=== PATIENT | female | born 1985 | race Asian ===

== ENCOUNTER → 2022-12-01 16:20 | Outpatient (CLI) | payer OTHER, SELFPAY | PROVIDERS: Referring Provider Family Medicine; Visit Provider Family Medicine | DX: Z23 Encounter for immunization (principal) | CPT/HCPCS: 90471; 90686 ==

== ENCOUNTER → 2023-12-07 14:18 | Outpatient (CLI) | payer OTHER, SELFPAY | PROVIDERS: PCP Family Medicine; Referring Provider Internal Medicine; Visit Provider Internal Medicine | DX: Z23 Encounter for immunization (principal) | CPT/HCPCS: 90471; 90656 ==

== ENCOUNTER → 2024-03-22 07:50 | Outpatient (CLI) | payer OTHER, SELFPAY ==
[2024-03-22 08:28] LABS: Add Manual Diff / Slide Review NO; Basophils Absolute Auto 100 /uL (0-100); Basophils Percent Auto 0.9 % (0-2); Eosinophils Absolute Auto 400 /uL (0-450); Eosinophils Percent Auto 6.7 % (2-4); Hematocrit 38.1 % (36-46); Hemoglobin 12.2 g/dL (12.0-16.0); Lymphocytes Absolute Auto 1800 /uL (1100-4500); Lymphocytes Percent Auto 27.3 % (25-40); Mean Corpuscular Hemoglobin 25.1 PG (26-34); Mean Corpuscular Volume 78.4 fL (80-100); Monocytes Absolute Auto 300 /uL (0-900); Monocytes Percent Auto 5.1 % (3-14); Neutrophils Absolute Auto 3900 /uL (1500-7000); Platelet Count 209 X10^3/uL (150-400); Red Blood Cell Count 4.85 X10^6/uL (4.0-5.2); Red Cell Distribution Width 14.3 % (11.6-14.8); White Blood Cell Count 6.5 X10^3/uL (4.5-11.0)
[2024-03-22 08:36] LABS: Hemoglobin A1C% w Est Avg Glu 4.9 % (4.0-6.0)
[2024-03-22 08:49] LABS: HEMOLYSIS < 15 (0-50); Iron 74 ug/dL (37-170)
[2024-03-22 08:54] LABS: Alanine Aminotransferase 20 IU/L (<35); Albumin 4.4 g/dL (3.5-5.0); Albumin Globulin Ratio 1.6 (1.0-2.8); Alkaline Phosphatase 56 U/L (38-126); Aspartate Aminotransferase 26 IU/L (14-36); BUN Creatinine Ratio 16.7 (6-22); Bilirubin Total 0.6 mg/dL (0.2-1.3); Blood Urea Nitrogen 13 mg/dL (7-17); Calcium 9.4 mg/dL (8.4-10.2); Carbon Dioxide 21 mmol/L (22-32); Chloride 107 mmol/L (98-107); Cholesterol 185 mg/dL (140-199); Estimated Glomerular Filt Rate > 60 mL/min (>60); Globulin 2.8 g/dL (1.7-4.1); Glucose 90 mg/dL (70-100); HDL Cholesterol 55 mg/dL (40-60); HEMOLYSIS < 15 (0-50); LDL Cholesterol Calculated 118 mg/dL (<100); Potassium 4.2 mmol/L (3.4-5.1); Sodium 136 mmol/L (137-145); Total Protein 7.2 g/dL (6.3-8.2); Triglycerides 60 mg/dL (35-150)
[2024-03-22 09:00] LABS: Percent Iron Saturation 20 % (15-50); Total Iron Binding Capacity 364 ug/dL (265-497); Transferrin 323 mg/dL (206-381)
[2024-03-22 09:10] LABS: Vitamin D 25 Hydroxy (D3) 25.1 ng/mL (30.0-100.0)
[2024-03-22 09:21] LABS: TSH w/ Reflex to FT4 1.37 uIU/mL (0.47-4.68)
== END ==
PROVIDERS: PCP Family Medicine; Referring Provider Family Medicine; Visit Provider Family Medicine
DX: R10.9 Unspecified abdominal pain (principal); Z98.84 Bariatric surgery status; E61.1 Iron deficiency; E55.9 Vitamin D deficiency, unspecified; E66.9 Obesity, unspecified
CPT/HCPCS: 36415; 80053; 80061; 82306; 83036; 83540; 83550; 84443; 85025

== ENCOUNTER → 2024-04-02 09:07 | Outpatient (CLI) | payer OTHER, SELFPAY ==
--- NOTE | 2024-04-02 09:08 | DI.CT.S_ITS ---
PROCEDURE: CT ABDOMEN PELVIS W CON INDICATIONS: Epigastric pain, abdominal pain TECHNIQUE: After the administration of intravenous contrast, axial sections acquired from the lung bases to the pubic symphysis. Coronal and sagittal reformats were performed. For radiation dose reduction, the following was used: automated exposure control, adjustment of mA and/or kV according to patient size. COMPARISON: None. FINDINGS: Image quality: Diagnostic. Lower Chest: No significant findings. ABDOMEN: Liver: No solid mass. Gallbladder: Surgically absent Biliary ducts: No biliary dilation. Pancreas: No ductal dilation. Spleen: Size is within normal limits. Adrenal Glands: No adrenal nodules. Kidneys and Ureters: No hydronephrosis. No solid mass. No complex renal cystic lesion which requires follow up. Stomach and Bowel: Status post gastric sleeve. Moderate hiatal hernia. Normal colonic caliber, without significant wall thickening. Normal caliber appendix. Colonic diverticulosis without acute inflammation. Peritoneum: No abnormal intraperitoneal fluid. No free air. Ventral Wall: No significant ventral hernia. Abdominal Nodes: No retroperitoneal or mesenteric adenopathy by size criteria. Vessels: Aorta and inferior vena cava are normal in size. PELVIS: Pelvic Organs: Irregular heterogeneously enhancing uterus consistent with uterine fibroids. Bladder: No bladder wall thickening, accounting for underdistention. Pelvic Nodes: No enlarged lymph nodes. Miscellaneous: No inguinal hernias are seen. Bones: No aggressive osseous abnormality. IMPRESSION: Moderate hiatal hernia. Gastric sleeve postsurgical changes. Multiple uterine fibroids. Colonic diverticulosis without CT evidence of acute diverticulitis. Approved by: Mayda Bergeron M.D.,Ph.D. on 04/04/2024 at 2:58
--- NOTE | 2024-04-02 09:08 | DI.NM.S_ITS ---
PROCEDURE: NM HIDA NO EJECTION FRACTION RADIOPHARMACEUTICAL: 5.4 mCi Tc-99m mebrofenin IV. INDICATIONS: worsening pain TECHNIQUE: Following intravenous administration of Tc-99m mebrofenin, sequential anterior abdominal images were obtained through at least 60 minutes. COMPARISON: [facility], CT, CT ABDOMEN PELVIS W CON, 04/02/2024, 9:26. FINDINGS AND IMPRESSION: Normal excretion in the liver and biliary system is present. There is nonobstructed flow of radiotracer into the bowel. The gallbladder is not seen. There is no accumulation of radiotracer at the cholecystectomy bed. Dictated by: Girish Cassidy M.D. on 04/02/2024 at 13:57 Approved by: Girish Cassidy M.D. on 04/02/2024 at 13:58
== END ==
PROVIDERS: PCP Family Medicine; Referring Provider Family Medicine; Visit Provider Family Medicine
DX: K44.9 Diaphragmatic hernia without obstruction or gangrene (principal); D25.9 Leiomyoma of uterus, unspecified; K57.90 Diverticulosis of intestine, part unspecified, without perforation or abscess without bleeding; R10.13 Epigastric pain; Z98.84 Bariatric surgery status; Z90.49 Acquired absence of other specified parts of digestive tract
CPT/HCPCS: 74177; 78226; A9537; Q9967

== ENCOUNTER 2024-05-25 19:30 | Emergency (ER) | payer OTHER, SELFPAY ==
[2024-05-25 19:32] VITALS: BP 117/80; PULSE 75; RESP 16; TEMP 37; O2SAT 100; BMI 36.0
[2024-05-25] MEDS: ONDANSETRON 4 MG/2 ML INJ IV (19:45)
[2024-05-25 20:15] LABS: Add Manual Diff / Slide Review NO; Basophils Absolute Auto 0 /uL (0-100); Basophils Percent Auto 0.5 % (0-2); Eosinophils Absolute Auto 300 /uL (0-450); Eosinophils Percent Auto 3.3 % (2-4); Hematocrit 40.9 % (36-46); Hemoglobin 13.3 g/dL (12.0-16.0); Lymphocytes Absolute Auto 2100 /uL (1100-4500); Lymphocytes Percent Auto 25.8 % (25-40); Mean Corpuscular HGB Conc 32.6 % (30-36); Mean Corpuscular Volume 79.8 fL (80-100); Monocytes Absolute Auto 400 /uL (0-900); Monocytes Percent Auto 4.8 % (3-14); Neutrophils Absolute Auto 5400 /uL (1500-7000); Neutrophils Percent Auto 65.6 % (50-75); Platelet Count 203 X10^3/uL (150-400); Red Blood Cell Count 5.12 X10^6/uL (4.0-5.2); Red Cell Distribution Width 15.5 % (11.6-14.8); White Blood Cell Count 8.2 X10^3/uL (4.5-11.0)
[2024-05-25 20:25] LABS: Alanine Aminotransferase 29 IU/L (<35); Albumin Globulin Ratio 1.3 (1.0-2.8); Alkaline Phosphatase 52 U/L (38-126); Aspartate Aminotransferase 50 IU/L (14-36); BUN Creatinine Ratio 21.3 (6-22); Bilirubin Total 0.6 mg/dL (0.2-1.3); Blood Urea Nitrogen 20 mg/dL (7-17); Calcium 9.3 mg/dL (8.4-10.2); Carbon Dioxide 22 mmol/L (22-32); Chloride 104 mmol/L (98-107); Estimated Glomerular Filt Rate > 60 mL/min (>60); Globulin 3.9 g/dL (1.7-4.1); Glucose 93 mg/dL (70-100); Lipase 134 U/L (23-300); Sodium 138 mmol/L (137-145); Total Protein 8.9 g/dL (6.3-8.2)
[2024-05-25 20:26] LABS: HEMOLYSIS 63 (0-50); Potassium 4.1 mmol/L (3.4-5.1)
[2024-05-25 21:04] LABS: Bacteria Urine Moderate (10-30); Culture Indicated Urine Cult Not Indicated; RBC Urine 0-1/HPF (0-5/HPF); Squamous Epithelial Cell Urine 1-5 /HPF (0-5/HPF); Urine Volume 10mL (spun); WBC Urine 0-1/HPF (0-5/HPF)
--- NOTE | 2024-05-25 21:09 | ED_ITS ---
HPI - General Adult General Chief complaint: Abdominal Pain Stated complaint: severe abd pain, off and on t-3months, v/d Time Seen by Provider: 05/25/24 19:56 Source: patient Mode of arrival: Ambulatory History of Present Illness HPI narrative: 38-year-old woman with a history of diverticulitis, gastric banding in 2016, post cholecystectomy who presents complaining of upper abdominal pain radiating through to her back starting 6:00 p.m. tonight. This has been chronic intermittent problem for her for the last number of months. She has had fairly extensive workup including colonoscopy, CT scan with HIDA study, upper and lower endoscopies that showed fairly significant esophagitis as well as a hiatal hernia. She has not appointment with a bariatric surgeon to discuss the gastric band to see if this might be causing her problems coming up in the near future. She was told that if her pain returns she should come to the emergency department. Typically the severe pain will last 20-30 minutes and then she will have intermittent pain for about a week and she will use diet restrictions and brat diet recommendations to help. She is on 40 mg b.i.d. of pantoprazole currently. She is nauseated but not vomiting, no chest pain, dyspnea, diaphoresis. She describes this is upper abdominal pain that is tight and squeezing. It is not reproducible with activity, position, typically occurs shortly after eating. She did have dinner approximately 30 minutes prior to episode today. Related Data Home Medications Medication Instructions Recorded Confirmed albuterol sulfate 90 mcg/actuation 1 inh inhalation ONCE 03/20/23 05/25/24 aerosol inhaler pantoprazole 40 mg tablet,delayed 40 mg PO BID 04/18/24 05/25/24 release cetirizine 10 mg tablet (Zyrtec) 10 mg PO DAILY 05/25/24 05/25/24 Previous Rx's Medication Instructions Recorded metoclopramide HCl 10 mg tablet 10 mg PO .q 6 hr prn #30 tabs 05/25/24 (Reglan) Allergies Allergy/AdvReac Type Severity Reaction Status Date / Time No Known Drug Allergies Allergy Verified 04/18/24 16:14 Review of Systems Review of Systems Narrative: Pertinent positive and negative findings as per HPI Patient History Medical History Asthma MDD (major depressive disorder) Iron deficiency Vitamin D deficiency Surgical History History of skin surgery History of cholecystectomy History of bariatric surgery Social History marital status: details: Works for [employer] household members: spouse Smoking Status: Never smoker Smoking Status: Never smoker Exam Initial Vital Signs Initial Vital Signs: Vital Signs Temperature 98.6 F 05/25/24 19:32 Pulse Rate 75 05/25/24 19:32 Respiratory Rate 16 05/25/24 19:32 Blood Pressure 117/80 05/25/24 19:32 Pulse Oximetry 100 05/25/24 19:32 Oxygen Delivery Method Room Air 05/25/24 19:32 General: Healthy appearing,Able to give a complete and coherent history. Well- nourished well-developed HEENT: Moist mucous membranes, normal sclera with reactive pupils, Respiratory: Lungs are clear to auscultation, no wheezing no rales no rhonchi. Full and symmetrical air movement Cardiac: Regular rate and rhythm no murmurs no bruits Abdomen: Soft, mild tenderness in the midepigastrium without rebound or guarding. No flank pain Skin: Warm and dry, no rashes Neurologic: Grossly neurologically intact with no obvious asymmetries or abnormalities Extremities: No trauma, well perfused Psych: Cooperative, appropriate insight and affect Course Orders Ordered: ED Orders 05/25/24 19:40 Urine Microscopic Stat 05/25/24 20:04 Complete Blood Count AUTO DIFF Stat Comprehensive Metabolic Panel Stat Lipase Stat Ondansetron HCl (Ondansetron 4 Mg/2 Ml Inj) 4 mg IV NOW PRN PRN Reason: Nausea And Vomiting Last Admin: 05/25/24 19:45 Dose: 4 mg Documented By: BHAVANI Ondansetron HCl (Ondansetron 4 Mg Odt) 4 mg PO NOW PRN PRN Reason: Nausea And Vomiting Vital Signs Vital signs: Vital Signs - 8 hr 05/25/24 19:32 Temperature 98.6 F Pulse Rate 75 Respiratory Rate 16 Blood Pressure 117/80 Pulse Oximetry 100 Oxygen Delivery Method Room Air Medical Decision Making Lab Data 05/25/24 20:04 05/25/24 20:04 Labs: Lab Results 04/12/25 04/12/25 Range/Units 19:40 20:04 WBC 8.2 (4.5-11.0) X10^3/uL RBC 5.12 (4.0-5.2) X10^6/uL Hgb 13.3 (12.0-16.0) g/dL Hct 40.9 (36-46) % MCV 79.8 L (80-100) fL MCH 26.0 (26-34) PG MCHC 32.6 (30-36) % RDW 15.5 H (11.6-14.8) % Plt Count 203 (150-400) X10^3/uL Neut % (Auto) 65.6 (50-75) % Lymph % (Auto) 25.8 (25-40) % [place] % (Auto) 4.8 (3-14) % Eos % (Auto) 3.3 (2-4) % Baso % (Auto) 0.5 (0-2) % Neut # (Auto) 5400 (8297-8389) /uL Lymph # (Auto) 2100 (5860-0654) /uL [place] # (Auto) 400 (0-900) /uL Eos # (Auto) 300 (0-450) /uL Baso # (Auto) 0 (0-100) /uL Sodium 138 (137-145) mmol/L Potassium 4.1 (3.4-5.1) mmol/L Chloride 104 (98-107) mmol/L Carbon Dioxide 22 (22-32) mmol/L BUN 20 H (7-17) mg/dL Creatinine 0.94 (0.52-1.04) mg/dL Estimated GFR > 60 (>60) mL/min BUN/Creatinine Ratio 21.3 (6-22) Glucose 93 (70-100) mg/dL Calcium 9.3 (8.4-10.2) mg/dL Total Bilirubin 0.6 (0.2-1.3) mg/dL AST 50 H (14-36) IU/L ALT 29 (<35) IU/L Alkaline Phosphatase 52 (38-126) U/L Total Protein 8.9 H (6.3-8.2) g/dL Albumin 5.0 (3.5-5.0) g/dL Globulin 3.9 (1.7-4.1) g/dL Albumin/Globulin Ratio 1.3 (1.0-2.8) Lipase 134 (23-300) U/L Urine RBC 0-1/hpf (0-5/HPF) Urine WBC 0-1/hpf (0-5/HPF) Ur Squamous Epith Cells 1-5 /hpf (0-5/HPF) Urine Bacteria Moderate (10-30) H (None) Ur Culture Indicated? Cult not indicated Vol Urine Centrifuged 10ml (spun) Point of Care Testing Test Results Negative Urine Dip Bedside Urine Glucose Negative Bedside Urine Bilirubin - Negative Bedside Urine Ketone - Negative Urine Specific [place] 1.030 Bedside Urine Occult Blood + Bedside Urine pH 5.5 Bedside Urine Protein - Negative Bedside Urine Urobilinogen - Negative Bedside Urine Nitrite - Negative Bedside Urine Leukocytes - Negative Esterase Point of care testing: Point of Care Testing Test Results Negative Urine Dip Bedside Urine Glucose Negative Bedside Urine Bilirubin - Negative Bedside Urine Ketone - Negative Urine Specific [place] 1.030 Bedside Urine Occult Blood + Bedside Urine pH 5.5 Bedside Urine Protein - Negative Bedside Urine Urobilinogen - Negative Bedside Urine Nitrite - Negative Bedside Urine Leukocytes - Negative Esterase MDM Narrative Medical decision making narrative: CC: Recurrent upper abdominal pain Complicating co-morbidities: Has been a problem for a number of months with fairly extensive workup to date. History of gastric band surgery, known hiatal hernia, no esophagitis, currently on b.i.d. pantoprazole 40 mg Data collected from: patient Medical records reviewed: GI notes from [facility] most recent visit May 08 summarizing her extensive workup today to reviewed. Please see brief review in HPI above. Recommendations for her eosinophilic esophagitis with dysphagia included increasing the pantoprazole to b.i.d., food elimination diet eliminating dairy and lactose for 8 weeks to see if this helps. Consideration of changing her to budesonide and follow up in about a month. For her bloating nausea and vomiting gastric emptying study for gastroparesis was also recommended but will wait until she has talked with her bariatric surgeon regarding the gastric sleeve prior to scheduling this study Differential considered: Recurrent chronic upper abdominal pain with workup in place, upper GI bleeding, gastric ulcer, choledocholithiasis seems less likely given her lack of gallbladder recent negative CT scan of the abdomen, pancreatitis, constipation, bowel obstruction Exam documented above, pertinent findings include: Patient is moderately uncomfortable, epigastric tenderness without rebound or guarding remainder of exam is benign Lab Test results independently reviewed as above. Pertinent findings: CBC is unremarkable Chemistries are reassuring. Liver studies show normal bilirubin, AST is minimally elevated at 50, ALT is unremarkable, alk-phos is normal Lipase is unremarkable Urine shows bacteria but no red cells white cells or other indication of infection Imaging studies independently reviewed: Gallbladder nuclear medicine study as well as abdomen pelvis CT scan from April 02 are both reviewed today Treatments: Zofran, 1 L of fluid Discussion: 38-year-old woman with intermittent episodes of significant upper abdominal pain. This has been going on for the last couple of months, she has a middle of very thorough outpatient workup that has not shown any life- threatening abnormalities. She has had her gallbladder removed. Workup today is equally reassuring. Pain has significantly improved. There was no sign of choledocholithiasis, anemia to suggest gastric bleeding, pancreatitis, acute hepatitis. We talked about trying Reglan if she does have any nausea. If part of her symptoms are related to gastroparesis this may be somewhat helpful. She does have an appointment coming up with her bariatric surgeon to see if her gastric sleeve maybe contributing and has follow up with Gastroenterology as an outpatient. Reviewed all the findings from today, there was no indication for additional imaging studies or hospitalization and she is safe for discharge Discharge Plan Departure Patient Disposition: Home Clinical Impression: Abdominal pain Qualifiers: Abdominal location: upper abdomen, unspecified Qualified Code(s): R10.10 - Upper abdominal pain, unspecified Instructions: DI for Abdominal Pain-Adult Activity Restrictions/Additional Instructions: Thank you for coming in today Looking at the extensive workup that you have already had done, it looks like you are in very competent hands and workup as scheduled seems completely appropriate. Today's evaluation in the emergency department is very benign. CBC, chemistries and urine were all unremarkable. I see no signs of infection, bleeding or indications for further studies or workup in the emergency department I am going to give you a prescription for Reglan, this is a nausea medicine that helps nausea by increasing transit time through the stomach. It is medicine we sometimes use with gastroparesis that can be helpful for for all types of nausea. Prescription was sent to [facility] If you find that you are getting worse or develop any new symptoms, please feel free to return to the emergency department for further evaluation. Prescriptions: New metoclopramide HCl [Reglan] 10 mg tablet 10 mg PO .q 6 hr prn Qty: 30 0RF Rx Instructions: administer 30 minutes before meals No Action albuterol sulfate 90 mcg/actuation HFA aerosol inhaler 1 inh inhalation ONCE pantoprazole 40 mg tablet,delayed release (DR/EC) 40 mg PO BID cetirizine [Zyrtec] 10 mg Tablet 10 mg PO DAILY Referrals: Tahmina Flynn MD [Primary Care Provider] - Stand Alone Forms: Patient Portal/API/Survey
[2024-05-25 21:30] VITALS: BP 120/72; PULSE 65; RESP 14; O2SAT 99
== END 2024-05-25 21:54 | disposition home or self-care (01) ==
PROVIDERS: Emergency Provider Emergency Medicine; PCP Family Medicine
DX: R10.10 Upper abdominal pain, unspecified (principal)
CPT/HCPCS: 36415; 80053; 81003; 81015; 81025; 83690; 85025; 96374; 99284; J2405

== ENCOUNTER 2024-11-11 06:28 | Day surgery (SDC) | payer OTHER, SELFPAY ==
[2024-10-09 08:46] VITALS: BMI 34.9
[2024-11-11] VITALS (15 sets, daily range): BP systolic 101–128; BP diastolic 55–76; PULSE 64–74; RESP 12–19; TEMP 36.1–36.9; O2SAT 96–100; BMI 31.8
--- NOTE | 2024-11-11 | PATH_ITS ---
[facility] Accession Number: [id number] No. of containers..01 Tissue . 01 Material submitted: . uterus - UTERUS,CERVIX,BILATERAL FALLOPIAN TUBES . 01 Diagnosis: UTERUS, CERVIX, BILATERAL FALLOPIAN TUBES, ROBOTIC ASSISTED TOTAL LAPAROSCOPIC HYSTERECTOMY (WEIGHT 217 GRAMS): Cervix with no significant histomorphologic abnormality. Endocervix with no significant histomorphologic abnormality. Secretory endometrium; negative for significant atypia. Myometrium with an intramural leiomyoma (19 mm in greatest dimension); negative for significant atypia. Uterine serosa with two subserosal leiomyomas (5.4 cm and 4.2 cm in greatest dimension). Left fallopian tube, complete cross-sections, and scattered benign paratubal cysts (up to 3 mm); negative for significant atypia. Right fallopian tube, complete cross-sections, and scattered benign paratubal cysts (up to 3 mm); negative for significant atypia. [facility] 11/19/2024 1526 Local . 01 Electronically signed: . Luzmaria Ellis MD, Pathologist NPI- [id number] . 01 Gross description: . Received in formalin with two identifiers and an illegible site on jar, is an irregularly shaped intact uterus 217 grams, 12.2 cm superior to inferior, 7.2 cm medial to lateral, 7.5 cm anterior to posterior with attached cervix (3.5 x 2.8 cm), left fallopian tube (5.8 x 1.2 cm), and right fallopian tube (4.9 x 1.3 cm), with no additional adnexa. . The ectocervix is rodriguez and wrinkled with a circular os 0.3 cm in diameter. The serosa is smooth with grossly dilated vasculature and is distorted by two large nodules mesauring 5.4 x 4.9 x 4.9 cm and 4.2 x 4.2 x 3.9 cm. The anterior paracervical margin is inked blue. The posterior paracervical margin is inked black. . The endocervical canal has rodriguez herringbone mucosa and measures 2.2 cm in length. The endometiral cavity is 3.1 cm from cornu to cornu, and 4.9 cm in length with pink-rodriguez lush endometrium that averages 0.3 cm thick. The myometrium is rodriguez and trabecular measuring up to 4.8 cm in maximum thickness with the two aforementioned subserosal nodules and a third intramural nodule 1.9 cm in greatest dimension. The cut surfaces are white, whorled, and rubbery with no hemorrhage or necrosis identified. . Both tubes have violaceous, smooth serosa with cystic structures up to 0.3 cm in greatest dimension filled with cloudy serous fluid. The lumen is stellate and unremarkable. . Video Production Coordinator sections are submitted as follows: A1: Anterior cervix. A2: Posterior cervix. A3: Anterior full thickness section. A4: Posterior full thickness section. A5-A7: Video Production Coordinator individual nodules. A8: Left fallopian tube. A9: Right fallopian tube. ([id number]) /VICTOR HUGO 11/12/2024 2110 [facility] . 01 Pathologist provided ICD-10: D25.9 . 01 CPT . 054598 Specimen Comment: A courtesy copy of this report has been sent to [facility] Pathology Performed at: [address] [address], [place], [place] [id number] MD Pradip Ramirez MD Phone: [phone]
[2024-11-11] MEDS: LACTATED RINGERS 1,000 ML 42 ML IV (07:16)
--- NOTE | 2024-11-11 07:34 | PM.PREOP ---
Pre-operative Note Interval Note History & Physical reviewed/Exam performed by Physician: Yes Changes to H&P: No H&P completed within 30 days and has changed as indicated here:: see H&P from 10/21/24
[2024-11-11] MEDS: SCOPOLAMINE 1 PATCH TOP (07:40)
--- NOTE | 2024-11-11 08:36 | SUR.OPER ---
Lithotomy on padded OR bed. Maxeys Pad Positioner under torso. Head on pillow, arms padded and tucked at sides. Legs secured in padded yellow fins stirrups. Faceshield placed by anesthesia.
--- NOTE | 2024-11-11 10:32 | PM.OP.1 ---
Operative Date/Time/Diagnoses Date of procedure: 11/11/24 Time of procedure: 08:15 Pre-op diagnosis: Abnormal uterine bleeding Uterine leiomyomata Post-op diagnosis: same Procedure & Clinicians Procedure: Robotic-assisted total laparoscopic hysterectomy Bilateral salpingectomy Same procedure(s) as scheduled: Yes Indications: 39yo F with AUB-L desiring definitive management, thus counseled and consented for the above procedure. Surgeon: Nell Yoo Assisted?: Yes Community Relations Advisor: Irina Crow Anesthesia Type: General Operative Notes Findings: Enlarged multifibroid uterus, normal appearing bilateral fallopian tubes and bilateral ovaries. Normal appearing posterior cul-de-sac. Closure Type: primary Specimen(s): other (uterus, cervix, bilateral fallopian tubes) Applied: catheter (removed at the end of the case) Estimated Blood Loss (mL): 50 Blood products transfused: none Procedure in detail: The risks, benefits, indications and alternatives of the procedure were reviewed with the patient and informed consent was obtained. The pt was taken to the operating room where general anesthesia was obtained without difficulty. The pt was then placed in the low lithotomy position using López Stirrups and arms were tucked with padding. Sequential compression devices were placed bilaterally for VTE prophylaxis. She was then prepped and draped in the sterile fashion and a Hernandez catheter was placed. She received 2g Ancef for surgical prophylaxis. A [employer]-b[employer] uterine manipulator was placed through the cervix into the uterus for uterine manipulation. Attention was then turned to the patient?s abdomen were an 8mm skin incision was made 3cm superior to the umbilicus after injecting 0.25% Marcaine. An 8mm trocar and sleeve were then carefully introduced into the peritoneal cavity under direct visualization at a 90-degree angle while tenting up the abdominal wall. Intra-peritoneal placement was confirmed under direct visualization with the laparoscope with entry pressure <5 mmHg. A pneumoperitoneum was obtained with several liters of CO2 gas, maximum pressure of 15 mmHg. Upon entry into the peritoneal cavity, structures immediately below the incision were inspected and found to be free of injury. A survey of the patient's abdomen and pelvis was notable for the above findings. Four additional 8mm port sites were placed linearly across the abdomen in line with the umbilicus, under direct laparoscopic guidance. The [employer] 5 surgical robot was then docked and instruments inserted under direct visualization. Control of the robot was then turned over to the console. The left fallopian tube was grasped and ligated from the mesosalpinx. The utero-ovarian and round ligaments were then clamped, cut, and ligated. The anterior broad ligament was then incised along the bladder reflection and the bladder was dissected off the lower uterine segment until endopelvic fascia was visualized. The uterine artery was then identified, skeletonized, and ligated on the left. The uterosacral ligament and cardinal ligament were transected on the left. Attention was then directed to the right side, where the same procedure was done to clamp, cut, and ligate the right fallopian tube and right side of the uterus. The anterior colpotomy was then made using monopolar scissors and continued circumferentially inferior to the cervix using the colpotomy ring as a guide. The entire cervix and uterus was then successfully amputated and delivered through the vagina. The 0 Stratafix suture was then introduced into the abdominal cavity, and the vaginal cuff was then closed robotically with the barbed suture in a running fashion. The suture needle was removed via the lateral port under direct visualization. The pelvis was then suctioned. Excellent hemostasis was noted. The surgical robot was then undocked, and the pneumoperitoneum was released. The ports were then removed, and the skin incisions were reapproximated using 4-0 monocryl suture in a subcuticular fashion and covered with Dermabond. At the completion of the case the sponge and needle counts were correct x 2, and all instruments were confirmed to be removed from the vagina. The hernandez catheter was also removed at the end of the case. The patient was taken to the PACU in stable condition. Complications: none Post-operative Condition: stable Disposition: PACU Plan for aftercare: Discharge to home once patient is able to void and her pain is well controlled.
[2024-11-11] MEDS: fentaNYL 100 MCG/2 ML INJ IV ×2 (10:56→11:07)
[2024-11-11] MEDS: LACTATED RINGERS 1,000 ML 120 ML IV (11:20)
--- NOTE | 2024-11-11 12:52 | SUR.PHASEII ---
1200 assisted to bathroom per wheelchair and attempt to void. Unable at this time. Assisted with dressing. drsgs dry and intact. minimal bleeding on peripad and taken back to bed. s/o at bedside
--- NOTE | 2024-11-11 13:10 | SUR.PHASEII ---
Pt rests quietly.. partner at bedside. vss. No complaints voiced.
== END 2024-11-11 14:30 | disposition home or self-care (01) ==
PROVIDERS: PCP Family Medicine; Referring Provider Student in an Organized Health Care Education/Training Program; Visit Provider Student in an Organized Health Care Education/Training Program
PROC: 0UT94ZZ Resection of Uterus, Percutaneous Endoscopic Approach (ICD-10-PCS; CPT 58571; principal; 2024-11-11 07:45)
DX: N83.8 Other noninflammatory disorders of ovary, fallopian tube and broad ligament (principal); Z87.891 Personal history of nicotine dependence; D25.1 Intramural leiomyoma of uterus; D25.2 Subserosal leiomyoma of uterus
CPT/HCPCS: 58571; S2900; J0689; J1100; J1885; J2250; J2405; J2704; J3010; J3490